=== PATIENT | female | born 1955 | race Caucasian/White ===

== ENCOUNTER → 2018-12-26 | Outpatient (CLI) | payer BC ==
[2018-12-26 16:06] LABS: ABG BASE EXCESS -2.3 MMOL/L (-2.5-2.5); ABG OXYGEN SATURATION 97 % (94-100); ABG PCO2 35 MMHG (35-45); ABG PH 7.41 (7.37-7.43); ABG PO2 67 MMHG (79-93); ABG TCO2 22.8 MMOL/L (21.0-31.0); ALLENS TEST POSITIVE; INSPIRED O2 ROOM AIR; PATIENT TEMP 97.4; VENTILATOR NO
== END ==
LOC: RT 15:00
PROVIDERS: ATTEND Nurse Practitioner Family
DX: J30.9 Allergic rhinitis, unspecified (principal); R05 Cough; R06.00 Dyspnea, unspecified; R06.89 Other abnormalities of breathing; Z72.0 Tobacco use
CPT/HCPCS: 36600; 82805; 94761